=== PATIENT | male | born 1980 | race Caucasian/White ===

== ENCOUNTER 2019-11-21 08:07 | Day surgery (SDC) | payer OTHER ==
[~2019-11-21] VITALS: Ht 188 cm; Wt 138.0 kg
[~2019-11-21 08:07] MED LIST: ASCO250T13 PO; BUPIVACAINE/PF 0.5% ONE; EPINEPHRINE 1 MG/ML, 1ML ONE; OMEP-110 PO
[2019-11-21] MEDS ORDERED: OXYcodone 5 MG/5 ML ORAL.SOL UDC PO PRN (09:00)
[2019-11-21] MEDS ORDERED: MEPERIDINE/PF 25MG/ML,1ML IVPush PRN (09:00)
[2019-11-21] MEDS ORDERED: HYDROmorphone 1 MG/ML, 1ML INJ IVPush PRN (09:00)
[2019-11-21] MEDS ORDERED: PROMETHAZINE 25 MG/ML, 1ML IV PRN (09:00)
[2019-11-21] MEDS ORDERED: FENTANYL PF 100 MCG/2ML IV PRN (09:00)
[2019-11-21] MEDS ORDERED: EPHEDRINE 50 MG/ML, 1ML IVPush PRN (09:00)
[2019-11-21] MEDS ORDERED: ONDANSETRON 2MG/ML, 2ML IV PRN (09:00)
[2019-11-21] MEDS ORDERED: LABETALOL 5MG/ML, 20ML IV PRN (09:00)
[2019-11-21] MEDS ORDERED: hydrALAzine 20 MG/ML, 1ML IV PRN (09:00)
[2019-11-21 09:05] VITALS: BP 165/102
[2019-11-21] MEDS ORDERED: ACETAMINOPHEN 500 MG TABLET PO STA (09:08)
[2019-11-21] MEDS ORDERED: LACTATED RINGERS 1,000 ML IV ONE (09:08)
[2019-11-21] MEDS ORDERED: GABAPENTIN 300 MG CAPSULE PO STA (09:08)
[2019-11-21] MEDS ORDERED: MIDAZOLAM 1 MG/ML, 2ML ONE (09:28)
[2019-11-21] MEDS ORDERED: FENTANYL PF 100 MCG/2ML ONE ×3 (09:28→09:58)
[2019-11-21] MEDS ORDERED: ONDANSETRON 2MG/ML, 2ML ONE (09:29)
[2019-11-21] MEDS ORDERED: DEXAMETHASONE 4 MG/ML, 1ML ONE (09:29)
[2019-11-21] MEDS ORDERED: SODIUM CHLORIDE 0.9% PF 10ML ONE (09:29)
[2019-11-21] MEDS ORDERED: CEFAZOLIN 1,000 MG ONE ×2 (09:29→09:31)
[2019-11-21] MEDS ORDERED: PROPOFOL 10 MG/ML, 20ML ONE (09:29)
[2019-11-21] MEDS ORDERED: LIDOCAINE-MPF 2% ,5ML ONE (09:29)
[2019-11-21] MEDS ORDERED: KETOROLAC 30 MG/1 ML ONE (09:42)
== END 2019-11-21 12:10 | disposition home or self-care (01) ==
LOC: OUT 08:07
PROVIDERS: ATTEND Colon & Rectal Surgery
DX: K60.3 Anal fistula (principal); K21.9 Gastro-esophageal reflux disease without esophagitis; E66.01 Morbid (severe) obesity due to excess calories; Z68.39 Body mass index [BMI] 39.0-39.9, adult; Z98.52 Vasectomy status; Z72.89 Other problems related to lifestyle
CPT/HCPCS: 46270; C1729; J0171; J1100; J1885; J2250; J2405; J2704; J3010; J7120; J0690